=== PATIENT | female | born 1995 | race Caucasian/White ===

== ENCOUNTER 2022-02-27 15:03 | Outpatient (REF) | payer OTHER, SELFPAY | END 2022-02-27 15:04 | disposition home or self-care (01) | LOC: HO.MRI 15:03 | PROVIDERS: Visit Provider Psychiatry & Neurology Neurology | DX: Z13.89 Encounter for screening for other disorder (principal) ==

== ENCOUNTER 2022-03-05 15:47 | Outpatient (REF) | payer OTHER, SELFPAY ==
--- NOTE | ~2022-03-05 | MR_ITS ---
EXAMINATION: MR BRAIN WITHOUT CONTRAST CLINICAL INFORMATION: 26-year-old with encephalopathy, seizures. COMPARISON: None TECHNIQUE: Multiplanar multisequence MR imaging of the brain was done without IV contrast. FINDINGS: Brain Volume: Within normal limits within the limitations of qualitative assessment. Structural: 1.1 cm probable arachnoid cyst in the horizontal stem of the left sylvian fissure. Minimal associated deformity along the superior aspect of the left superior temporal gyrus. Brain and Meninges: DWI sequence demonstrates no restricted diffusion to suggest acute or subacute cerebral ischemia. The brain is normal in morphology and signal intensity. The mesial temporal lobe structures are bilaterally symmetric and unremarkable. Anderson-white matter differentiation is well maintained. Gradient refocused imaging demonstrates no evidence for hemorrhage, hemosiderin staining or abnormal mineral deposition. No extra-axial fluid collections, space-occupying process or mass effect. Ventricles and Subarachnoid Spaces: The ventricular system and subarachnoid spaces are within normal limits without hydrocephalus. Orbital Structures: The visualized orbital structures are grossly unremarkable within the limitations of the study. Vascular: Signal voids are noted in the visualized major intracranial vessels. Osseous Structures, Sinuses/Mastoids, Extracranial Soft Tissues: Unremarkable MR/MR head/brain wo con IMPRESSION: 1. No acute intracranial process. Normal-appearing brain parenchyma. 2. 1.1 cm cystic structure within the horizontal stem of the left sylvian fissure, likely a small arachnoid cyst. 3. Otherwise unremarkable noncontrast exam.
== END 2022-03-05 15:48 | disposition home or self-care (01) ==
LOC: HO.MRI 15:47
PROVIDERS: Visit Provider Psychiatry & Neurology Neurology
DX: G93.40 Encephalopathy, unspecified (principal); R56.9 Unspecified convulsions
CPT/HCPCS: 70551

== ENCOUNTER → 2022-06-10 13:12 | Outpatient (BNVA) | payer OTHER, SELFPAY | PROVIDERS: PCP Physician Assistant Medical; Visit Provider Psychiatry & Neurology Neurology | DX: G47.10 Hypersomnia, unspecified (principal); R06.83 Snoring; E66.9 Obesity, unspecified; R51.9 Headache, unspecified; G93.0 Cerebral cysts | CPT/HCPCS: 99202 ==

== ENCOUNTER → 2022-07-01 14:56 | Outpatient (REF) | payer OTHER, SELFPAY | LOC: HO.SL 14:56 | PROVIDERS: Visit Provider Psychiatry & Neurology Neurology | DX: G47.34 Idiopathic sleep related nonobstructive alveolar hypoventilation (principal); G47.10 Hypersomnia, unspecified; R06.83 Snoring; E66.9 Obesity, unspecified | CPT/HCPCS: 95806 ==

== ENCOUNTER → 2022-08-05 12:47 | Outpatient (REF) | payer OTHER, SELFPAY | LOC: HO.SL 12:47 | PROVIDERS: Visit Provider Nurse Practitioner Family | DX: G47.34 Idiopathic sleep related nonobstructive alveolar hypoventilation (principal); R06.83 Snoring; R53.83 Other fatigue; E66.9 Obesity, unspecified; R51.9 Headache, unspecified | CPT/HCPCS: 95806 ==

== ENCOUNTER → 2022-09-04 08:59 | Outpatient (BNVA) | payer OTHER, SELFPAY | PROVIDERS: PCP Physician Assistant Medical; Visit Provider Psychiatry & Neurology Neurology | DX: R06.83 Snoring (principal); G47.10 Hypersomnia, unspecified; G93.0 Cerebral cysts; R53.83 Other fatigue; R51.9 Headache, unspecified; E66.9 Obesity, unspecified; Z68.42 Body mass index [BMI] 45.0-49.9, adult | CPT/HCPCS: 99212 ==